=== PATIENT | female | born 1995 | race Two or more races ===

== ENCOUNTER 2024-03-21 15:37 | Inpatient (IN) | payer MEDICAID, OTHER ==
[~2024-03-21] VITALS: Ht 160 cm; Wt 66.2 kg
--- NOTE | 2024-03-21 15:50 | ED.PDOC ---
GI ASSESSMENT HPI Comments HPI: Poor Historian. 28y F who presents to the ED for chief complaint of rectal bleed. Pt states she has been having rectal and pelvic pain with associated cramping for the past 1 month. Pt states she also started to have rectal bleeding for the past 1 week and states she has noticed blood in her bowels with associated blood in the bowl and associated clots in the toilet bowl. Pt she continued to have associated chills with her symptoms and states she continued to have bleeding and came to the ED for further evaluation. Pt states in the ED, she did have normal bowel movement today. Pt otherwise denies any vomiting, fever, dysuria, hematuria, headache or dizziness. Pt otherwise denies any other symptoms at this time. Vitals T: 99.0 F RR: 16 HR: 101 BP: 133/79 O2: 99 % on RA PMH: migraines PSH: denies Social hx: denies tobacco use, denies ETOH use, denies drug use medications: unknown allergies: NKDA REVIEW OF SYSTEMS: CONSTITUTIONAL: Denies acute: fever, diaphoresis, chills, HEAD: Denies acute: headache, photophobia Eyes: Denies acute: Double vision, vision loss, eye pain, eye discharge. EARS: Denies acute: tinnitus, hearing loss, ear discharge, ear pain, THROAT: Denies acute: sore throat, swelling, difficulty swallowing , pain with swallowing, change in voice. NECK: Denies acute: neck pain, neck swelling, stiff neck. HEART: Denies acute : chest pain, palpitations, LUNGS: Denies acute: SOB, wheezing, cough, hemoptysis ABDOMEN: Denies acute: Vomiting, diarrhea, melena , hematemesis, SKIN: Denies acute: rash, redness, lesions, itchiness. EXTREMITIES: Denies acute: calf pain, numbness, tingling, weakness, denies pain in extremity. Denies acute: Low back pain. Neuro: Denies acute: focal neurological deficit, motor or sensory focal neurological deficit, tremors, seizure like activity, confusion, change in mental status, loss of bowel or bladder function, cauda equina like symptoms. : Denies acute: dysuria, hematuria, flank pain, increase in urinary frequency. PSYCH: Denies acute: hallucination, suicidal ideation, homicidal ideation. FEMALE: Denies acute: abnormal vaginal bleeding, foul odor, unusual discharge. PHYSICAL EXAM: General: no acute distress, awake and alert. Head: normocephalic, atraumatic. Neck: supple, trachea is midline, no swelling. Throat: Normal phonation. Eyes:, no erythema, no purulent discharge, no proptosis, no icterus. Heart: regular tachycardia, no significant murmur appreciated. Lungs: no apparent respiratory distress, Able to speak in full sentences. No wheezing, no rhonchi, no crackles. No stridors Clear to auscultation bilaterally. Abdomen: Epigastric and suprapubic tender to palpation, non distended, soft, no guarding, no rebound, + bowel sounds. Neuro: Awake, Alert, oriented to name, self, situation, follows commands GCS=15. Speech is normal. Skin: no petechia, no purpura, no cyanosis, slightly-pale, not jaundice. Lower extremities: --no - Pitting edema no deformity, no focal swelling, no calf TTP. Makes eye contact. moves all four extremities. Face: no apparent facial droop. Ambulating in the ED independently. Chief Complaint: GI Bleed Time Seen by MD: 15:43 Reviewed Notes: Nurses Notes, Allergies Allergies: Coded Allergies: NO KNOWN ALLERGIES (Unverified , 03/21/24) Information Source: Patient Mode of Arrival: Ambulatory Brought in by: self Past Medical History Past Medical History (Other): migraines Surgical History: Denies all surgeries DIRECTOR AND PROFESSOR History: Denies all DIRECTOR AND PROFESSOR Hx Family History Family History: Unknown Social History Smoker: Non-Smoker Alcohol: Denies ETOH Use Drugs: Denies Drug Use Lives In: Home Was a procedure done? Was a procedure done?: No GI differential Dx Differential Diagnosis: Other (Diverticulitis, colitis, fistula, neoplasm, hemorrhoids, anal fissures, constipation, Crohn's disease, ulcerative colitis) X-Ray, Labs, Meds, VS Vital Signs Date Time Temp Pulse Resp B/P (MAP) Pulse Ox O2 Delivery O2 Flow Rate FiO2 03/21/24 17:30 108 18 99 Room Air 03/21/24 17:30 97.3 108 18 109/83 (92) 99 97.3 03/21/24 15:42 99.0 101 16 133/79 (97) 99 Lab Test 03/21/24 18:18 03/21/24 16:25 03/21/24 16:18 Range/Units Hemoglobin 12.4 13.4 12.2-16.2 g/dL Hematocrit 37.5 39.8 36.0-46.0 % White Blood Count 4.3 L 4.4-10.8 10^3/uL Red Blood Count 4.51 4.0-5.20 10^6/uL Mean Corpuscular Volume 88.3 80.0-100.0 fL Mean Corpuscular Hemoglobin 29.8 28.0-32.0 pg Mean Corpuscular Hemoglobin Concent 33.7 32.0-36.0 g/dL Red Cell Distribution Width 14.1 11.8-14.3 % Platelet Count 206 140-450 10^3/uL Mean Platelet Volume 8.3 6.9-10.8 fL Neutrophils (%) (Auto) 63.6 37.0-80.0 % Lymphocytes (%) (Auto) 24.8 10.0-50.0 % Monocytes (%) (Auto) 10.4 0.0-12.0 % Eosinophils (%) (Auto) 0.6 0.0-7.0 % Basophils (%) (Auto) 0.6 0.0-2.0 % Neutrophils # (Auto) 2.7 1.6-8.6 10 ^3/uL Lymphocytes # (Auto) 1.1 0.4-5.4 10 ^3/uL Monocytes # (Auto) 0.4 0-1.3 10 ^3/uL Eosinophils # (Auto) 0 0-0.8 10 ^3/uL Basophils # (Auto) 0 0-0.2 10 ^3/uL Nucleated Red Blood Cells 0.1 % Prothrombin Time 11.0 9.3-11.8 sec Prothrombin Time INR 1.04 0.9-1.15 Activated Partial Thromboplast Time 27.0 24.5-34.5 SEC Sodium Level 141 136-145 mmol/L Potassium Level 3.5 3.5-5.1 mmol/L Chloride Level 108 H 98-107 mmol/L Carbon Dioxide Level 24 20-31 mmol/L Anion Gap 9 5-15 Blood Urea Nitrogen 8 L 9-23 mg/dL Creatinine 0.67 0.550-1.02 mg/dL Glomerular Filtration Rate Calc 123 >90 mL/min BUN/Creatinine Ratio 11.9 10.0-20.0 Serum Glucose 91 74-106 mg/dL Lactic Acid Level 1.3 0.4-2.0 mmol/L Calcium Level 9.8 8.7-10.4 mg/dL Total Bilirubin 0.7 0.2-1.0 mg/dL Aspartate Amino Transferase (AST) 20 13-40 U/L Alanine Aminotransferase (ALT) 23 7-40 U/L Alkaline Phosphatase 66 46-116 U/L Troponin I High Sensitivity < 3 L </=34 ng/L Total Protein 7.4 5.7-8.2 g/dL Albumin 5.0 H 3.2-4.8 g/dL Lipase 32 12-53 U/L Beta HCG, Quantitative 1.7 1.5-4.2 mIU/mL Urine Color Yellow Yellow Urine Clarity Turbid H Clear Urine pH 5.0 5.0-9.0 Urine Specific [place] 1.026 1.001-1.035 Urine Protein Trace H Negative Urine Ketones 1+ H Negative Urine Blood Negative Negative /uL Urine Nitrite Negative Negative Urine Bilirubin Negative Negative Urine Urobilinogen Normal Negative mg/dL Urine Leukocyte Esterase Negative Negative /uL Urine RBC 4 0 - 4 /hpf Urine WBC 3 0 - 5 /hpf Urine Squamous Epithelial Cells Few <5 /hpf Urine Bacteria Few H None Seen /hpf Urine Mucus Few None Seen Urine Glucose Normal Normal mg/dL Current Medications Medications (Trade) Dose Ordered Sig/Jonnie Route Start Time Stop Time Status Last Admin Sodium Chloride 1,000 ml @ 1,000 mls/hr Q1H ONCE IV 03/21/24 16:00 03/21/24 16:59 DC 03/21/24 17:43 [place] [address] Ph: [phone] DIAGNOSTIC IMAGING Diagnostic Imaging Report : [id number] Signed PATIENT: SALMA TROTTER ACCT: [id number] UNIT: [id number] : 1995 LOC: ER ROOM / BED: / AGE / SEX: 28 / F ADM STATUS: REG ER SERVICE [id number] ORDERING PHYSICIAN: CARL TROTTER DO PROCEDURE(s): ABPLIV - CT AB PEL WITH IV CON ONLY REASON: rectal bleeding abd pain ORDER NUMBER(s): [id number], ACCESSION NUMBER(s): [id number] Exam: CT CT AB PEL WITH IV CON ONLY History: rectal bleeding abd pain Comparison Study: None available at time of dictation. Contrast: Type of contrast: Omnipaque 300 Contrast injected: 99 cc Contrast wasted: 0 TECHNIQUE: A digital professional sports scout image was obtained. During the uneventful, int ravenous administration of contrast material, multislice data acquisition was obtained through the abdomen and pelvis. The data set was subsequently reconstructed into axial images. Images were reviewed on a work station using a combination of axial and multiplanar using a variety of window levels and settings. Radiation Dose Information: CT Dose: CTDI volume is 7.39 mGy. Dose-length product is 365.87 mGy*cm FINDINGS: Lung Bases: No acute or significant lung base finding. Normal heart size. No pleural or pericardial effusion. Liver: The liver is normal in size. No focal lesions. Normal hepatic vascular enhancement. Gallbladder and Biliary Tree: Unremarkable Spleen: Unremarkable Pancreas: The pancreas is normal in appearance without focal lesions or abnormal enhancement. Adrenal Glands: Unremarkable Kidneys: Kidneys demonstrate normal symmetric enhancement without focal lesions, calculi or hydronephrosis. Bladder: Unremarkable Bowel: The stomach is grossly normal in appearance. Small bowel and colon are normal in caliber and distribution. The appendix is normal. Ascites: Absent Lymphadenopathy: No mesenteric, retroperitoneal or periportal lymphadenopathy. Abdominal Wall and Mesentery: Unremarkable. Vasculature: The visualized abdominal aorta is normal in size and caliber. Abdominal and pelvic vessels demonstrate normal enhancement. Pelvic Organs: Unremarkable Musculoskeletal: No aggressive focal bony lesions, acute fractures. Chronic bilateral L5 pars defects with associated grade 1-2 anterolisthesis of L5 on S1. Soft tissues: Unremarkable. IMPRESSION: 1. No CT evidence of acute abdominopelvic abnormality. 2. Chronic bilateral L5 pars defects with associated grade 1-2 anterolisthesis of L5 on S1. All CT scans at this medical facility are performed using dose modulation techniques as appropriate to a performed exam including the following: Automated exposure control was utilized; adjustment of the MA and/or KV according to patient size; and use of iterative reconstruction technique. HS:Y ATED BY: JAMES MEEKS DO DICTATED DATE/TIME: 03/21/24 7898 SIGNED BY: JAMES MEEKS DO SIGNED DATE/TIME: 03/21/241757 CC: [address] [address] Ph: [phone] DIAGNOSTIC IMAGING Diagnostic Imaging Report : [id number] Signed PATIENT: SALMA TROTTER ACCT: [id number] UNIT: [id number] : 1995 LOC: OVERFLOW ROOM / BED: [facility] [place] [facility] A AGE / SEX: 28 / F ADM STATUS: ADM IN SERVICE 49 ORDERING PHYSICIAN: CARL TROTTER DO PROCEDURE(s): PELUS - PELVIC REASON: pelvic cramps ORDER NUMBER(s): [id number], ACCESSION NUMBER(s): [id number] Procedure: US PELVIC Study Date and Requested Time: 03/21/2024 07:59 PM Study Description: US PELVIC History: pelvic cramps Comparison: None Technique: Multiple transabdominal and transvaginal high resolution robles-scale images obtained of the uterus and adnexa with color Doppler for evaluation of adnexal blood flow and vascularity as indicated. Findings: Uterus measures 7.4 x 4.5 x 5.5 cm, with homogeneous echotexture. Endometrium within normal limits, measuring 0.9 cm in thickness with smooth contour. Cervix within normal limits. Right ovary measures 2.7 x 2 x 3.1 cm. Left ovary measures 2.4 x 1.5 x 2.4 cm. Normal ovarian color Doppler flow bilaterally. No evidence of cystic or solid ovarian lesions. No evidence of free fluid in the cul-de-sac. Impression: Unremarkable sonographic study of the pelvis. ATED BY: SHANIQUA CRUZ DO DICTATED DATE/TIME: 03/21/242108 SIGNED BY: SHANIQUA CRUZ DO SIGNED DATE/TIME: 03/21/242108 CC: Time of 1ST Reevaluation: 19:12 Reevaluation 1ST: Unchanged Patient Education/Counseling: Diagnosis, Treatment Family Education/Counseling: No Family Present Comments Patient presented with the above HPI.---rectal bleeding/lower abdominal pain---workup was initiated. patient was found with the above mentioned diagnosis. Patient was given: Protonix, fluids, Patient ED course and VS have been stabilized. Patient has been reassessed in the ED and remained in a stable condition. Pertinent incidental findings were discussed with the patient and/or family. Patient/family voices understanding and is agreeable with plan. Patient has been observed in the ED adequate length of time to insure improvement/stability. patient was admitted to the medicine team for further evaluation and treatment of their presentation. All the reports of any imaging studies that were ordered by myself were reviewed by myself. Departure 1 Departure Time of Disposition: 18:18 Impression: Primary Impression: GI bleed Disposition: ADMITTED INPATIENT Admit to: Tele Condition: Guarded Discharged With: Self Critical Care Note Critical Care Time?: No I personally scribed for CARL TROTTER DO ([email or web address]) on 03/21/24 at 15:50. Electronically submitted by Leonila Fajardo ([employer]). I personally scribed for CARL TROTTER DO ([email or web address]) on 03/21/24 at 16:10. Electronically submitted by Lenoila Fajardo ([employer]). I personally scribed for CARL TROTTER DO ([email or web address]) on 03/21/24 at 18:04. Electronically submitted by Leonila Fajardo ([employer]). I personally scribed for CARL TROTTER DO ([email or web address]) on 03/21/24 at 21:28. Electronically submitted by Leonila FIGUEREDO). CARL TROTTER DO Mar 21, 2024 15:50
[2024-03-21 16:40] LABS: Urine Bacteria FEW /hpf (None Seen); Urine Blood Negative /uL (Negative); Urine Clarity Turbid (Clear); Urine Color Yellow (Yellow); Urine Mucus FEW (None Seen); Urine Protein, UAD TRACE (Negative); Urine Specific Gravity 1.026 (1.001-1.035); Urine Urobilinogen Normal (Negative); Urine WBC 3 /hpf (0 - 5)
[2024-03-21 16:46] LABS: Basophils # (auto) 0 10 ^3/uL (0-0.2); Basophils % (auto) 0.6 % (0.0-2.0); Eosinophils # (auto) 0 10 ^3/uL (0-0.8); Eosinophils % (auto) 0.6 % (0.0-7.0); Hematocrit 39.8 % (36.0-46.0); Hemoglobin 13.4 g/dL (12.2-16.2); Lymphocytes # (auto) 1.1 10 ^3/uL (0.4-5.4); Lymphocytes % (auto) 24.8 % (10.0-50.0); Mean Corpuscular Hemoglobin 29.8 pg (28.0-32.0); Mean Corpuscular Hgb Conc. 33.7 g/dL (32.0-36.0); Mean Corpuscular Volume 88.3 fL (80.0-100.0); Monocytes # (auto) 0.4 10 ^3/uL (0-1.3); Monocytes % (auto) 10.4 % (0.0-12.0); Neutrophils # (auto) 2.7 10 ^3/uL (1.6-8.6); Neutrophils % (auto) 63.6 % (37.0-80.0); Nucleated Red Blood Cells % 0.1 %; Platelet Count (auto) 206 10^3/uL (140-450); Red Blood Cells 4.51 10^6/uL (4.0-5.20); Red Cell Distribution Width 14.1 % (11.8-14.3); White Blood Cell 4.3 10^3/uL (4.4-10.8)
[2024-03-21 17:05] LABS: Alanine Aminotransferase 23 U/L (7-40); Alkaline Phosphatase 66 U/L (46-116); Anion Gap 9 (5-15); Aspartate Aminotransferase 20 U/L (13-40); BUN/Creatinine Ratio 11.9 (10.0-20.0); Bilirubin, Total 0.7 mg/dL (0.2-1.0); Blood Urea Nitrogen 8 mg/dL (9-23); Calcium 9.8 mg/dL (8.7-10.4); Carbon Dioxide 24 mmol/L (20-31); Chloride 108 mmol/L (98-107); Glucose 91 mg/dL (74-106); Lipase 32 U/L (12-53); Potassium 3.5 mmol/L (3.5-5.1); Sodium 141 mmol/L (136-145); Total Protein 7.4 g/dL (5.7-8.2)
[2024-03-21] MEDS: IOHEXOL 300 MG/ML 100ML BOTTLE IJ ONE (17:13)
[2024-03-21 17:19] LABS: INR 1.04 (0.9-1.15)
[2024-03-21] MEDS: SODIUM CHLORIDE 0.9% 1,000 ML IV ONE (17:43)
--- NOTE | 2024-03-21 18:00 | DVH ---
Exam: CT CT AB PEL WITH IV CON ONLY History: rectal bleeding abd pain Comparison Study: None available at time of dictation. Contrast: Type of contrast: Omnipaque 300 Contrast injected: 99 cc Contrast wasted: 0 TECHNIQUE: A digital architectural superintendent image was obtained. During the uneventful, intravenous administration of c ontrast material, multislice data acquisition was obtained through the abdomen and pelvis. The data s et was subsequently reconstructed into axial images. Images were reviewed on a work station using a c ombination of axial and multiplanar using a variety of window levels and settings. Radiation Dose Information: CT Dose: CTDI volume is 7.39 mGy. Dose-length product is 365.87 mGy*cm FINDINGS: Lung Bases: No acute or significant lung base finding. Normal heart size. No pleural or pericardial effusion. Liver: The liver is normal in size. No focal lesions. Normal hepatic vascular enhancement. Gallbladder and Biliary Tree: Unremarkable Spleen: Unremarkable Pancreas: The pancreas is normal in appearance without focal lesions or abnormal enhancement. Adrenal Glands: Unremarkable Kidneys: Kidneys demonstrate normal symmetric enhancement without focal lesions, calculi or hydroneph rosis. Bladder: Unremarkable Bowel: The stomach is grossly normal in appearance. Small bowel and colon are normal in caliber and d istribution. The appendix is normal. Ascites: Absent Lymphadenopathy: No mesenteric, retroperitoneal or periportal lymphadenopathy. Abdominal Wall and Mesentery: Unremarkable. Vasculature: The visualized abdominal aorta is normal in size and caliber. Abdominal and pelvic vess els demonstrate normal enhancement. Pelvic Organs: Unremarkable Musculoskeletal: No aggressive focal bony lesions, acute fractures. Chronic bilateral L5 pars defects with associated grade 1-2 anterolisthesis of L5 on S1. Soft tissues: Unremarkable. IMPRESSION: 1. No CT evidence of acute abdominopelvic abnormality. 2. Chronic bilateral L5 pars defects with associated grade 1-2 anterolisthesis of L5 on S1. All CT scans at this medical facility are performed using dose modulation techniques as appropriate to a performed exam including the following: Automated exposure control was utilized; adjustment of t he MA and/or KV according to patient size; and use of iterative reconstruction technique. HS:Y
[2024-03-21 18:45] LABS: Hematocrit 37.5 % (36.0-46.0); Hemoglobin 12.4 g/dL (12.2-16.2)
[2024-03-21] MEDS ORDERED: MORPHINE SULFATE INJ 2 MG/ml SYRG IV PRN ×2 (20:45)
[2024-03-21] MEDS ORDERED: ONDANSETRON HCL 4 MG/2 ML VIAL IV PRN (20:45)
[2024-03-21] MEDS ORDERED: NITROGLYCERIN 0.4 MG SL TAB SL PRN (20:45)
--- NOTE | 2024-03-21 21:11 | DVH ---
Procedure: US PELVIC Study Date and Requested Time: 03/21/2024 07:59 PM Study Description: US PELVIC History: pelvic cramps Comparison: None Technique: Multiple transabdominal and transvaginal high resolution robles-scale images obtained of the uterus and adnexa with color Doppler for evaluation of adnexal blood flow and vascularity as indicat ed. Findings: Uterus measures 7.4 x 4.5 x 5.5 cm, with homogeneous echotexture. Endometrium within normal limits, m easuring 0.9 cm in thickness with smooth contour. Cervix within normal limits. Right ovary measures 2.7 x 2 x 3.1 cm. Left ovary measures 2.4 x 1.5 x 2.4 cm. Normal ovarian color D oppler flow bilaterally. No evidence of cystic or solid ovarian lesions. No evidence of free fluid in the cul-de-sac. Impression: Unremarkable sonographic study of the pelvis.
[2024-03-21] MEDS: PANTOPRAZOLE 40 MG/10 ML VIAL INJ IV ONE (21:40)
[2024-03-21] MEDS: SODIUM CHLOR 0.9% PF (SALINE LOCK) 10ML VIAL/SYR IV SCH (21:50)
[2024-03-21 21:57] VITALS: PULSE 78; RESP 18; O2SAT 98
[2024-03-21 22:58] LABS: Amphetamine Screen, Urine Neg (NEGATIVE); Barbiturate Scree,Urine Neg (NEGATIVE); Benzodiazephine Screen, Urine Neg (NEGATIVE); Cocaine Screen, Urine Neg (NEGATIVE)
[2024-03-21 22:59] LABS: Cannabinoid Screen, Urine Neg (NEGATIVE); Opiate Scree,Urine Neg (NEGATIVE); Phencyclidine Screen, Urine Neg (NEGATIVE)
[2024-03-21 23:36] LABS: % Iron Saturation 21.8 % (15-50)
--- NOTE | 2024-03-21 23:52 | DVHHPRES ---
History of Present Illness Resident Creating Document: CHERELLE SAINI RESIDENT History of Present Illness 71 years old female past medical history of migraine came with a complaint of abdominal pain and rectal bleeding. Patient's she started having abdominal pain in the lower region, intermittent, crampy in nature, 9/10 most severity, no aggravating or relieving factor. Patient initially thought that maybe related to try menstruation but the pain persisted intermittently after end of menstruation. Patient reported the with the intermittent pain she also gets the back pain at the same time. Patient also reported having bleeding per rectum 4 days before for once. Patient reported that she had a hard stool when she was having bleeding per rectum and she saw on top of stool on the toilet pain but could not clarify if it was before or after popping. Patient noted that she did not have any per rectal bleeding in last 3 days. Patient denied any vaginal dis charge or anal sex. Patient reported she had rectal bleeding 2 years before in 2021 and had colonoscopy which revealed no abnormality, possible hemorrhoids. Patient denied any fever, dysuria, chest pain, shortness of breath, rash or joint pain or swelling, dysarthria slurring of speech. Initial lab workup was nonsignificant with a hemoglobin 13.4, WBC 4.3, AST/ALT/serum bilirubin/alkaline phosphatase within normal limit, lipase within normal limit, beta hCG negative. CT abdomen -No CT evidence of acute abdominopelvic abnormality. Chronic bilateral L5 pars defects with associated grade 1-2 anterolisthesis of L5 on S1. Past Medical History Migraine Past Surgical History None Past Social History Denies smoking/alcoholism/drug abuse Review of Systems Review of Systems Allergy- NKD Patient was seen today at the bedside. Patient reports intermittent lower abdominal pain Cardiovascular- deny acute chest pain or shortness of breath or cough or palpitation Respiratory- denies cough or short of breath or wheezing Gastrointestinal- denies any rectal bleeding, nausea or vomiting Musculoskeletal-denies acute joint swelling or tenderness or redness Neurological- denies acute dysarthria, dysphagia, change in vision Psychiatry- denies depression or SI or HI Skin- denies acute rash or purpura Allergies: Coded Allergies: NO KNOWN ALLERGIES (Unverified , 03/21/24) Medications Current Medications Medications Dose Ordered Sig/Jonnie Route Start Time Stop Time Status Last Admin Dose Admin Sodium Chloride 10 ml Q8HR IV 03/21/24 22:00 03/21/24 21:50 10 ML Ondansetron HCl 4 mg Q4HP PRN IV 03/21/24 20:45 Morphine Sulfate 2 mg Q4HPRN PRN IV 03/21/24 20:45 Nitroglycerin 0.4 mg Q5MINP PRN SL 03/21/24 20:45 Morphine Sulfate 2 mg Q30M PRN IV 03/21/24 20:45 Lactated Ringer's 1,000 ml @ 75 mls/hr [id number] IV 03/21/24 22:30 Pantoprazole Sodium 40 mg BID IV 03/22/24 10:00 Exam Vital Signs Vital Signs Date Time Temp Pulse Resp B/P (MAP) Pulse Ox O2 Delivery O2 Flow Rate FiO2 03/21/24 21:57 87 18 110/65 (80) 98 03/21/24 21:57 Room Air* 0 21 03/21/24 17:30 97.3 97.3 Exam General examination- awake, alert, oriented, conversant HEENT- PEERLA, no acute nasal discharge Cardiovascular- S1-S2 audible, rate and rhythm regular, no murmur Respiratory- CTAB, no wheeze or rhonchi Gastrointestinal-nontender, bowel sound+. Nondistended Musculoskeletal-no acute joint swelling or tenderness or redness# Lower extremity- no leg edema Neurological- cranial nerves intact, no acute dysarthria or dysphagia Psychiatry- denies depression or SI or HI Skin- no acute rash or purpura Digital rectal exam in presence of Director Consumer [employer] Perla- No external or internal hemorrhoid noted, no active rectal bleeding Labs/Xrays Labs Test 03/21/24 22:30 03/21/24 18:18 03/21/24 16:25 03/21/24 16:18 Range/Units Plasma/Serum Blood Alcohol 3.7 <10 mg/dL Hemoglobin 12.4 12.2-16.2 g/dL Hematocrit 37.5 36.0-46.0 % White Blood Count 4.3 L 4.4-10.8 10^3/uL Red Blood Count 4.51 4.0-5.20 10^6/uL Mean Corpuscular Volume 88.3 80.0-100.0 fL Mean Corpuscular Hemoglobin 29.8 28.0-32.0 pg Mean Corpuscular Hemoglobin Concent 33.7 32.0-36.0 g/dL Red Cell Distribution Width 14.1 11.8-14.3 % Platelet Count 206 140-450 10^3/uL Mean Platelet Volume 8.3 6.9-10.8 fL Neutrophils (%) (Auto) 63.6 37.0-80.0 % Lymphocytes (%) (Auto) 24.8 10.0-50.0 % Monocytes (%) (Auto) 10.4 0.0-12.0 % Eosinophils (%) (Auto) 0.6 0.0-7.0 % Basophils (%) (Auto) 0.6 0.0-2.0 % Neutrophils # (Auto) 2.7 1.6-8.6 10 ^3/uL Lymphocytes # (Auto) 1.1 0.4-5.4 10 ^3/uL Monocytes # (Auto) 0.4 0-1.3 10 ^3/uL Eosinophils # (Auto) 0 0-0.8 10 ^3/uL Basophils # (Auto) 0 0-0.2 10 ^3/uL Nucleated Red Blood Cells 0.1 % Prothrombin Time 11.0 9.3-11.8 sec Prothrombin Time INR 1.04 0.9-1.15 Activated Partial Thromboplast Time 27.0 24.5-34.5 SEC Sodium Level 141 136-145 mmol/L Potassium Level 3.5 3.5-5.1 mmol/L Chloride Level 108 H 98-107 mmol/L Carbon Dioxide Level 24 20-31 mmol/L Anion Gap 9 5-15 Blood Urea Nitrogen 8 L 9-23 mg/dL Creatinine 0.67 0.550-1.02 mg/dL Glomerular Filtration Rate Calc 123 >90 mL/min BUN/Creatinine Ratio 11.9 10.0-20.0 Serum Glucose 91 74-106 mg/dL Lactic Acid Level 1.3 0.4-2.0 mmol/L Calcium Level 9.8 8.7-10.4 mg/dL Total Bilirubin 0.7 0.2-1.0 mg/dL Aspartate Amino Transferase (AST) 20 13-40 U/L Alanine Aminotransferase (ALT) 23 7-40 U/L Alkaline Phosphatase 66 46-116 U/L Troponin I High Sensitivity < 3 L </=34 ng/L Total Protein 7.4 5.7-8.2 g/dL Albumin 5.0 H 3.2-4.8 g/dL Lipase 32 12-53 U/L Beta HCG, Quantitative 1.7 1.5-4.2 mIU/mL Urine Color Yellow Yellow Urine Clarity Turbid H Clear Urine pH 5.0 5.0-9.0 Urine Specific [place] 1.026 1.001-1.035 Urine Protein Trace H Negative Urine Ketones 1+ H Negative Urine Blood Negative Negative /uL Urine Nitrite Negative Negative Urine Bilirubin Negative Negative Urine Urobilinogen Normal Negative mg/dL Urine Leukocyte Esterase Negative Negative /uL Urine RBC 4 0 - 4 /hpf Urine WBC 3 0 - 5 /hpf Urine Squamous Epithelial Cells Few <5 /hpf Urine Bacteria Few H None Seen /hpf Urine Mucus Few None Seen Urine Glucose Normal Normal mg/dL Urine Opiates Screen Neg NEGATIVE Urine Fentanyl Screen Neg NEGATIVE Urine Barbiturates Screen Neg NEGATIVE Urine Phencyclidine Screen Neg NEGATIVE Urine Amphetamines Screen Neg NEGATIVE Urine Benzodiazepines Screen Neg NEGATIVE Urine Cocaine Screen Neg NEGATIVE Urine Cannabinoids Screen Neg NEGATIVE Assessment/Plan Assessment/Plan # lower abdominal pain likely due to constipation can cause pain/PID -CT abdomenNo CT evidence of acute abdominopelvic abnormality. Chronic bilateral L5 pars defects with associated grade 1-2 anterolisthesis of L5 on S1. -pelvic ultrasound-Unremarkable sonographic study of the pelvis. -continue pain medication as prescribed -pending Gynecology and chlamydia lab reports -continue pain medication as prescribed -continue IV fluid as prescribed # rectal bleeding likely due to constipation -patient had 1 episode per rectal bleeding 4 days ago --CT abdomenNo CT evidence of acute abdominopelvic abnormality. Chronic bilateral L5 pars defects with associated grade 1-2 anterolisthesis of L5 on S1. -pelvic ultrasound-Unremarkable sonographic study of the pelvis. -pending stool FOBT -hemoglobin 13.4> 12.4 -continue pain medication as prescribed # slow transit bowel movement -continue lactulose as prescribed -avoid dehydration -high-fiber continuing diet # migraine -continue pain medication as prescribed. Goals of care/advance care planning; FULL CODE; discussed with the patient >15 minutes PUD prophylaxis: Pantoprazole DVT prophylaxis: Patient ambulating Plan discussed with Dr. Matias, nursing staff, patient Total time spent on patient evaluation, chart review, assessment and plan, discussion discussion >30 minutes Plan discussed with: Patient Plan discussed with: Patient, Other (RN) My Orders Orders - BABU,MOHAMMED RESIDENT Procedure Category Date Status Time Admit ADMIT 03/21/24 Transmitted 20:41 Code Status CODE 03/21/24 Transmitted 20:41 Sodium Chloride Lock PHA 03/21/24 In Process (Saline Lock Ns) 22:00 Ondansetron Hcl PHA 03/21/24 In Process (Zofran) 20:45 Npo (Nothing By DIET 03/22/24 Transmitted Mouth) Diet Breakfast Morphine Sulfate PHA 03/21/24 In Process Injection 20:45 Nitroglycerin PHA 03/21/24 In Process Sublingual (Ntrostat 20:45 Morphine Sulfate PHA 03/21/24 In Process Injection 20:45 Oxygen By Nasal RT 03/21/24 Transmitted Cannula 20:41 Stat Ekg For Chest [facility] 03/21/24 In Process Pain 20:41 Notify Md Of Changes [facility] 03/21/24 In Process From Base 20:41 Pizza Delivery Driver For [facility] 03/21/24 In Process 24 Hours 20:41 Emergency Dysrhythmia [facility] 03/21/24 In Process Protocol 20:41 Rhythm Strips Once [facility] 03/21/24 In Process Every Shift 20:41 Date of Service: Mar 21, 2024 Billing Provider: JENNA MATIAS MD Common Visit Codes: [id number] INP/OBS CARE (HIGH) CHERELLE SAINI RESIDENT Mar 21, 2024 23:52 JENNA MATIAS MD Mar 22, 2024 07:09
[2024-03-21] MEDS: LACTATED RINGER'S 1,000 ML IV SCH (23:55)
[2024-03-22 00:02] LABS: Erythrocyte Sedimentation Rate 9 mm/hr (0-20)
[2024-03-22] MEDS: SENNA 8.6 MG TAB PO ONE (00:11)
[2024-03-22] MEDS: LACTULOSE 20Gm/30ML SOLN PO ONE (02:38)
[2024-03-22 04:52] LABS: Basophils # (auto) 0 10 ^3/uL (0-0.2); Basophils % (auto) 0.6 % (0.0-2.0); Eosinophils # (auto) 0 10 ^3/uL (0-0.8); Eosinophils % (auto) 0.5 % (0.0-7.0); Hematocrit 36.5 % (36.0-46.0); Hemoglobin 12.5 g/dL (12.2-16.2); Lymphocytes # (auto) 1.1 10 ^3/uL (0.4-5.4); Lymphocytes % (auto) 17.7 % (10.0-50.0); Mean Corpuscular Hgb Conc. 34.2 g/dL (32.0-36.0); Mean Corpuscular Volume 87.8 fL (80.0-100.0); Monocytes # (auto) 0.6 10 ^3/uL (0-1.3); Monocytes % (auto) 9.9 % (0.0-12.0); Neutrophils # (auto) 4.6 10 ^3/uL (1.6-8.6); Neutrophils % (auto) 71.3 % (37.0-80.0); Nucleated Red Blood Cells % 0.1 %; Platelet Count (auto) 195 10^3/uL (140-450); Red Blood Cells 4.15 10^6/uL (4.0-5.20); Red Cell Distribution Width 14.2 % (11.8-14.3); White Blood Cell 6.4 10^3/uL (4.4-10.8)
[2024-03-22 05:03] LABS: Chloride 108 mmol/L (98-107); Potassium 3.4 mmol/L (3.5-5.1); Sodium 140 mmol/L (136-145)
[2024-03-22 05:04] LABS: Anion Gap 10 (5-15); Calcium 9.6 mg/dL (8.7-10.4); Carbon Dioxide 22 mmol/L (20-31)
[2024-03-22 05:09] LABS: BUN/Creatinine Ratio 8.2 (10.0-20.0); Blood Urea Nitrogen 5 mg/dL (9-23); Glucose 90 mg/dL (74-106)
[2024-03-22 05:29] VITALS: PULSE 85; RESP 19; O2SAT 98
[2024-03-22] MEDS: POTASSIUM CHL 20 Meq TABLET PO ONE (06:48)
[2024-03-22] MEDS: LACTULOSE 20Gm/30ML SOLN PO PRN (06:49)
[2024-03-22 07:52] VITALS: PULSE 85; O2SAT 99
[2024-03-22 08:00] VITALS: TEMP 98
[2024-03-22] MEDS: PANTOPRAZOLE 40 MG/10 ML VIAL INJ IV SCH (09:07)
[2024-03-22] MEDS: POTASSIUM EFFERVESENT TAB 25 MEQ PO ONE (10:56)
[2024-03-22] MEDS ORDERED: ACETAMINOPHEN 325 MG TAB PO PRN (11:15)
[2024-03-22] MEDS: HYDROcodone-ACET 5/325MG TAB PO ONE (11:37)
[2024-03-22] MEDS: IBUPROFEN 400 MG TAB PO SCH (14:00)
[2024-03-22 15:00] VITALS: BP 99/51; RESP 18; O2SAT 98
[2024-03-22 16:00] VITALS: PULSE 72
[2024-03-22] MEDS ORDERED: ACET-1882 PO (16:42)
[2024-03-22] MEDS ORDERED: IBUP1TAB4 PO (16:42)
--- NOTE | 2024-03-22 17:08 | DVHDSRES ---
Discharge Summary Date of Admission Resident Creating Document: ANDREW GUAJARDO RESIDENT Mar 21, 2024 at 20:41 Date of Discharge: Mar 22, 2024 Admitting Diagnosis Abdominal pain Labs/Diagnostic Data: Laboratory Results Test 03/22/24 09:00 03/22/24 04:39 03/21/24 22:30 03/21/24 16:25 Stool Occult Blood Negative (Negative) Stool Occult Blood Sample #3 (Negative) Stool for White Cells None seen White Blood Count 6.4 10^3/uL (4.4-10.8) Red Blood Count 4.15 10^6/uL (4.0-5.20) Hemoglobin 12.5 g/dL (12.2-16.2) Hematocrit 36.5 % (36.0-46.0) Mean Corpuscular Volume 87.8 fL (80.0-100.0) Mean Corpuscular Hemoglobin 30.0 pg (28.0-32.0) Mean Corpuscular Hemoglobin Concent 34.2 g/dL (32.0-36.0) Red Cell Distribution Width 14.2 % (11.8-14.3) Platelet Count 195 10^3/uL (140-450) Mean Platelet Volume 7.9 fL (6.9-10.8) Neutrophils (%) (Auto) 71.3 % (37.0-80.0) Lymphocytes (%) (Auto) 17.7 % (10.0-50.0) Monocytes (%) (Auto) 9.9 % (0.0-12.0) Eosinophils (%) (Auto) 0.5 % (0.0-7.0) Basophils (%) (Auto) 0.6 % (0.0-2.0) Neutrophils # (Auto) 4.6 10 ^3/uL (1.6-8.6) Lymphocytes # (Auto) 1.1 10 ^3/uL (0.4-5.4) Monocytes # (Auto) 0.6 10 ^3/uL (0-1.3) Eosinophils # (Auto) 0 10 ^3/uL (0-0.8) Basophils # (Auto) 0 10 ^3/uL (0-0.2) Nucleated Red Blood Cells 0.1 % Sodium Level 140 mmol/L (136-145) Potassium Level 3.4 mmol/L (3.5-5.1) Chloride Level 108 mmol/L (98-107) Carbon Dioxide Level 22 mmol/L (20-31) Anion Gap 10 (5-15) Blood Urea Nitrogen 5 mg/dL (9-23) Creatinine 0.61 mg/dL (0.550-1.02) Glomerular Filtration Rate Calc 126 mL/min (>90) BUN/Creatinine Ratio 8.2 (10.0-20.0) Serum Glucose 90 mg/dL (74-106) Calcium Level 9.6 mg/dL (8.7-10.4) Erythrocyte Sedimentation Rate 9 mm/hr (0-20) Iron Level 74 ug/dL (50-170) Total Iron Binding Capacity 340 ug/dL (250-425) Percent Iron Saturation 21.8 % (15-50) Ferritin 20.8 ng/mL (10-291) C-Reactive Protein High Sensitivity 0.15 mg/dL (<1.0) Thyroid Stimulating Hormone (TSH) 1.75 uIU/mL (0.55-4.78) Plasma/Serum Blood Alcohol 3.7 mg/dL (<10) Prothrombin Time 11.0 sec (9.3-11.8) Prothrombin Time INR 1.04 (0.9-1.15) Activated Partial Thromboplast Time 27.0 SEC (24.5-34.5) Lactic Acid Level 1.3 mmol/L (0.4-2.0) Total Bilirubin 0.7 mg/dL (0.2-1.0) Aspartate Amino Transferase (AST) 20 U/L (13-40) Alanine Aminotransferase (ALT) 23 U/L (7-40) Alkaline Phosphatase 66 U/L (46-116) Troponin I High Sensitivity < 3 ng/L (</=34) Total Protein 7.4 g/dL (5.7-8.2) Albumin 5.0 g/dL (3.2-4.8) Lipase 32 U/L (12-53) Beta HCG, Quantitative 1.7 mIU/mL (1.5-4.2) Test 03/21/24 16:18 Urine Color Yellow (Yellow) Urine Clarity Turbid (Clear) Urine pH 5.0 (5.0-9.0) Urine Specific [place] 1.026 (1.001-1.035) Urine Protein Trace (Negative) Urine Ketones 1+ (Negative) Urine Blood Negative /uL (Negative) Urine Nitrite Negative (Negative) Urine Bilirubin Negative (Negative) Urine Urobilinogen Normal mg/dL (Negative) Urine Leukocyte Esterase Negative /uL (Negative) Urine RBC 4 /hpf (0 - 4) Urine WBC 3 /hpf (0 - 5) Urine Squamous Epithelial Cells Few /hpf (<5) Urine Bacteria Few /hpf (None Seen) Urine Mucus Few (None Seen) Urine Glucose Normal mg/dL (Normal) Urine Opiates Screen Neg (NEGATIVE) Urine Fentanyl Screen Neg (NEGATIVE) Urine Barbiturates Screen Neg (NEGATIVE) Urine Phencyclidine Screen Neg (NEGATIVE) Urine Amphetamines Screen Neg (NEGATIVE) Urine Benzodiazepines Screen Neg (NEGATIVE) Urine Cocaine Screen Neg (NEGATIVE) Urine Cannabinoids Screen Neg (NEGATIVE) Other Laboratory Tests 03/22/24 04:39 Brief Hx & Hospital Course: SALMA TROTTER is a 28 years old female past medical history of migraine came with a complaint of abdominal pain and rectal bleeding. Patient's she started having abdominal pain in the lower region, intermittent, crampy in nature, 9/10 most severity, no aggravating or relieving factor. Patient initially thought that maybe related to try menstruation but the pain persisted intermittently after end of menstruation. Patient reported the with the intermittent pain she also gets the back pain at the same time. Patient also reported having bleeding per rectum 4 days before for once. Patient reported that she had a hard stool when she was having bleeding per rectum and she saw on top of stool on the toilet pain but could not clarify if it was before or after popping. Patient noted that she did not have any per rectal bleeding in last 3 days. Patient denied any vaginal discharge or anal sex. Patient reported she had rectal bleeding 2 years before in 2021 and had colonoscopy which revealed no abnormality, possible hemorrhoids. Patient denied any fever, dysuria, chest pain, shortness of breath, rash or joint pain or swelling, dysarthria slurring of speech. Patient required hospital admission for further evaluation and management of abdominal pain and rectal bleeding. CT abdomen the pelvis showed no acute abdominal pelvic abnormality but chronic bilateral L5 pars defects with associated grade 1-2 anterolisthesis of L5 on S1 which required outpatient follow up. pelvic ultrasound showed no sonographic evidence. Rectal examination showed no palpable masses in the rectal cannula, stool occult blood negative. Patient was given laxatives , patient stated improvement in pain. Patient condition was improved, stable and in condition to be discharged home with optimal medical treatment. Patient was advised about healthy lifestyle habits including diet with more fibers and exercise and to follow up with the PCP. Pt is lying on bed General Appearance: Alert, Oriented X3, Cooperative, Not in acute distress HEENT: Atraumatic, Mucous membranes moist/pink Respiratory: Clear to auscultation, Normal air movement, No added sounds Cardiovascular: Regular rate, Normal S1, Normal S2, No murmurs Abdominal: mild abdominal tenderness, Soft, no distention, Extremities: No edema, Normal pulses, No tenderness/swelling Skin: No Significant rash Neuro: Normal speech, sensorimotor deficits none Psych/Mental Status: Mental status NL, Mood NL Nurse was there as sharperone during examination Operations or Procedures US PELVIC Unremarkable sonographic study of the pelvis. CT CT AB PEL WITH IV CON ONLY 1. No CT evidence of acute abdominopelvic abnormality. 2. Chronic bilateral L5 pars defects with associated grade 1-2 anterolisthesis of L5 on S1. Condition at Discharge: Stable Final Diagnosis/Problems List # lower abdominal pain likely due to constipation can cause pain # Rule out PID, pending NAAT # rectal bleeding likely due to constipation or anal fissure # migraine # Chronic bilateral L5 pars defects with associated grade 1-2 anterolisthesis of L5 on S1 Discharge Disposition: Home Discharge Instruct/Medications Diet: See Comment Diet comment: High-fiber diet Activity: No Restrictions, As Tolerated Follow Up/Referral: PCP Medications: Per EMR Discharge Statement: "Patient was advised to return to the ER or call 911 if any headaches, dizziness, shortness of breath, chest pain, abdominal pain, bleeding, fevers, or worsening of medical condition. Patient was counseled about treatment plan, medications, possible side effects, patientverbalized understanding. All questions were answered to the best of my ability. This discharge took greater then 30 minutes in planning, reviewing documentation, counseling the patient, and discussing with other team members." ASSESSMENT ASSESSMENT Assessment possible anal fissure constipation Date of Service: Mar 22, 2024 Billing Provider: LJ MORROW MD Common Visit Codes: [id number] DISCH DAY >30min Coding Comment Comment Attending Attestation I saw and evaluated the patient. I reviewed the residents note and agree with findings and plan as documented in the residents note except as documented below. ANDREW GUAJARDO RESIDENT Mar 22, 2024 17:08 LJ MORROW MD Mar 23, 2024 22:01
[2024-03-24 00:06] LABS: Chlamydia Trachomatis, NAA Negative (Negative); Neisseria gonorrhoeae, NAA Negative (Negative)
== END 2024-03-22 16:56 | disposition home or self-care (01) | DRG 254 ==
LOC: ER 15:37 → OVERFLOW 20:41
PROVIDERS: ADMIT Student in an Organized Health Care Education/Training Program; ATTEND Student in an Organized Health Care Education/Training Program
DX: K59.09 Other constipation (principal); G43.909 Migraine, unspecified, not intractable, without status migrainosus; K60.2 Anal fissure, unspecified; N73.9 Female pelvic inflammatory disease, unspecified; Z79.899 Other long term (current) drug therapy; K62.5 Hemorrhage of anus and rectum
CPT/HCPCS: 36415; 74177; 76856; 80048; 80053; 80307; 80320; 81001; 82270; 82306; 82607; 82728; 83540; 83550; 83605; 83690; 84443; 84484; 84702; 85014; 85018; 85025; 85048; 85610; 85652; 85730; 86141; 86850; 86900; 86901; 87045; 87086; 87427; G0378; J2470